=== PATIENT | male | born 1980 | race Caucasian/White ===

== ENCOUNTER 2017-03-07 18:29 | Emergency (ER) | payer OTHER ==
[2017-03-07] MEDS ORDERED: TORAdol 30 mg Injection IM ONE (19:19)
[2017-03-07] MEDS ORDERED: TORAdol 30 mg Injection ONE (19:35)
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
[2017-03-07] MEDS ORDERED: PERCOCET TABLET 5/325MG PO STA (21:14)
[2017-03-07] MEDS ORDERED: PERCOCET TABLET 5/325MG ONE (21:16)
[2017-03-07 21:18] VITALS: BP 151/84; PULSE 80; O2SAT 96
--- NOTE | 2017-03-08 08:58 | XRAY ---
Indication: Status post fall. Multiple contiguous axial images obtained through the head without contrast. Comparison: None Normal appearing brain parenchyma, ventricles, and bony calvarium. Visualized paranasal sinuses demonstrates moderate mucosal thickening of both maxillary and lesser degree both sphenoid sinuses. Mastoid air cells clear. Impression: Paranasal sinus disease. No acute intracranial abnormalities. CTDI 46.70
--- NOTE | 2017-03-08 09:00 | XRAY ---
Indication: Status post fall. Multiple contiguous axial images obtained through the cervical spine. Sagittal and coronal reformatted images obtained. Comparison: None Axial images negative for acute fracture, suspicious bony lesions, or spinal canal stenosis. Mild C5-C7 degenerative endplate spurring and tiny C6-C7 degenerative vacuum disc phenomena. Sagittal and coronal reformatted images demonstrates normal alignment. Minimal C6-C7 disc space narrowing. No acute compression fracture, subluxation, or jumped facet. Normal-appearing craniocervical junction. Visualized noncontrasted soft tissues including lung apices unremarkable. CT head reported separately. Impression: 1. Negative acute fracture/subluxation. 2. C5-C7 degenerative disc disease. CT DI 97.05
--- NOTE | 2017-03-08 09:02 | XRAY ---
Indication: Fall. Comparison: None 3 views of the left shoulder demonstrates old clavicle shaft fracture with intact fixation hardware and old first/second rib fractures. No other bony, articular, or soft tissue abnormalities.
--- NOTE | 2017-03-08 09:02 | XRAY ---
Indication: Fall. Comparison: None 2 views of the left humerus demonstrates tiny olecranon process spur and partially visualized clavicle fixation plate/screws. No other bony, articular, or soft tissue abnormalities.
--- NOTE | 2017-03-08 09:04 | XRAY ---
Indication: Fall. Comparison: None 2 views of the left forearm demonstrates tiny olecranon process spur. No other bony, articular, or soft tissue abnormalities.
--- NOTE | 2017-03-08 09:04 | XRAY ---
Indication: Fall. Comparison: None 2 views of the left wrist demonstrates mild radiocarpal joint space narrowing. No other bony, articular, or soft tissue abnormalities.
== END 2017-03-07 21:24 | disposition home or self-care (01) ==
LOC: ED 18:29
DX: M79.602 Pain in left arm (principal); W10.9XXA Fall (on) (from) unspecified stairs and steps, initial encounter; M25.512 Pain in left shoulder; M54.2 Cervicalgia; I10 Essential (primary) hypertension
CPT/HCPCS: 70450; 72125; 73030; 73060; 73090; 73100; 96372; 99283; 99284; J1885; A9270-GY

== ENCOUNTER 2017-06-18 02:33 | Emergency (ER) | payer MEDICAID, OTHER ==
[2017-06-18] MEDS ORDERED: TORAdol 30 mg Injection IM ONE (02:52)
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
[2017-06-18 03:00] VITALS: O2SAT 97
[2017-06-18] MEDS ORDERED: TORAdol 30 mg Injection ONE (03:02)
[2017-06-18 04:30] VITALS: BP 130/70; PULSE 68
--- NOTE | 2017-06-18 09:09 | XRAY ---
Indication: Pain following fall. Comparison: March 07, 2017. 3 views of the left shoulder unchanged again demonstrating old clavicle fracture with intact hardware and old second rib fracture. No new/acute findings.
== END 2017-06-18 04:00 | disposition home or self-care (01) ==
LOC: ED 02:33
DX: M25.512 Pain in left shoulder (principal); S46.912A Strain of unspecified muscle, fascia and tendon at shoulder and upper arm level, left arm, initial encounter; M54.2 Cervicalgia; W00.0XXA Fall on same level due to ice and snow, initial encounter
CPT/HCPCS: 73030; 96372; 99283; 99284; J1885